=== PATIENT | female | born 1955 | race Caucasian/White ===

== ENCOUNTER 2020-08-06 09:43 | Outpatient (CLI) | payer MEDICARE, OTHER ==
[2020-08-06 10:17] LABS: Clarity Hazy (Clear)
[2020-08-06 10:18] LABS: Leukocyte Negative (Negative); Nitrite Positive (Negative); Specific Gravity, Urine 1.025 (1.005-1.030)
[2020-08-06 10:19] LABS: Bilirubin Small (Negative); Glucose, Urine (Dipstick) Negative (Negative); Ketone, Urine Trace mg/dL (Negative); Protein, Urine (Dipstick) Negative (Neg-Trace)
[2020-08-06 10:20] LABS: Bacteria/HPF 2+ HPF (None Seen); Blood, Urine Trace (Negative); RBC/HPF 0-3 HPF (0-3); Squamous Epithelial 0-3 HPF (0-3); WBC/HPF 0-3 HPF (0-3)
== END 2020-08-06 09:44 | disposition home or self-care (01) ==
LOC: MADLABSP 09:43
PROVIDERS: ATTEND Student in an Organized Health Care Education/Training Program
DX: Z87.440 Personal history of urinary (tract) infections (principal)
CPT/HCPCS: 87077; 87086; 87186